=== PATIENT | male | born 1960 ===

== ENCOUNTER 2018-09-07 08:44 | Day surgery (SDC) | payer BC ==
[2018-09-07] MEDS ORDERED: Lactated Ringer's 500 ML IV SCH (12:45)
[2018-09-07] MEDS ORDERED: Propofol 10 mg/ml Inj (20 ML) ONE (12:49)
[2018-09-07] MEDS ORDERED: Lactated Ringer's 500 ML IV ONE (12:50)
[2018-09-07 14:16] VITALS: O2SAT 99
[2018-09-07 14:29] VITALS: BP 129/77; PULSE 72; RESP 21; TEMP 97.7
== END 2018-09-07 14:29 | disposition home or self-care (01) ==
LOC: C.ENDO 08:44
PROVIDERS: ATTEND Internal Medicine Gastroenterology
DX: Z12.11 Encounter for screening for malignant neoplasm of colon (principal); D12.0 Benign neoplasm of cecum; D12.7 Benign neoplasm of rectosigmoid junction; D12.3 Benign neoplasm of transverse colon; K64.8 Other hemorrhoids
CPT/HCPCS: 45380; 45385; 88305; J2704; J7120

== ENCOUNTER 2018-09-28 11:36 | Outpatient (CLI) | payer BC | END 2018-09-28 11:37 | disposition home or self-care (01) | LOC: C.PAT 11:36 | DX: K63.5 Polyp of colon (principal) ==

== ENCOUNTER 2018-10-03 09:21 | Outpatient (CLI) | payer BC | END 2018-10-03 09:22 | disposition home or self-care (01) | LOC: C.PAT 09:21 | DX: Z01.818 Encounter for other preprocedural examination (principal) ==

== ENCOUNTER 2018-10-05 07:06 | Inpatient (IN) | payer BC ==
[2018-10-03 09:33] VITALS: BMI 23.3
[2018-10-05] MEDS ORDERED: Lidocaine/Epinephrine 1% 1:100000 10 ML IJ ONE (07:59)
[2018-10-05] MEDS ORDERED: Bupivacaine 0.25% 20 ML INJ IJ ONE (07:59)
[2018-10-05] MEDS ORDERED: metroNIDAZOLE IV 500 mg/100 ml 500 MG/100 ML BAG ONE (08:00)
[2018-10-05] MEDS ORDERED: ceFAZolin 1 gm in NS 1 GM/100 ML BAG IVPB ONE ×2 (08:00→09:27)
[2018-10-05] MEDS ORDERED: Bupivacaine HCl 0.5% PF (10 ml) Inj ONE (08:32)
[2018-10-05] MEDS ORDERED: Propofol 10 mg/ml Inj (20 ML) ONE (08:38)
[2018-10-05] MEDS ORDERED: Midazolam 2 MG/2 ML VIAL ONE (08:38)
[2018-10-05] MEDS ORDERED: Rocuronium 10 mg/ml (5 ml) ONE (08:41)
[2018-10-05] MEDS ORDERED: Phenylephrine 10 mg/ml Inj ONE (08:41)
[2018-10-05] MEDS ORDERED: Bupivacaine Liposomal Inj 20 ml INFIL ONE (12:11)
[2018-10-05] MEDS ORDERED: BUPIVACAINE 0.125%/0.9% NACL 600 ML IJ ONE (12:13)
[2018-10-05] MEDS ORDERED: Sodium Chloride 0.9% 20 ML IV ONE (12:24)
--- NOTE | 2018-10-05 12:55 | PCM.SURG1 ---
Surgeon's Initial Post Op Note - Surgeon's Notes Surgeon: Dr. Ronquillo Bottom Buffer: Perlita Salguero Type of Anesthesia: General Endo, Local Anesthesia Administered By: Behzad Moss Pre-Operative Diagnosis: Colon Mass Operative Findings: see operative report Post-Operative Diagnosis: same Operation Performed: Robot-assisted Right Hemicolectomy, partial omentectomy, short segment small bowel resection with anastamosis, placement of On-Q catheters Specimen/Specimens Removed: Right Colon, Partial omentum Estimated Blood Loss: EBL {In ML}: 50 Blood Products Given: N/A Drains Used: No Drains Post-Op Condition: Good Date of Surgery/Procedure: 10/05/18 Time of Surgery/Procedure: 12:57
[2018-10-05] MEDS: HYDROmorphone 0.5 mg/0.5 ml ISec IVP PRN ×2 (13:42→14:15)
[2018-10-05] MEDS: Piperacill/Tazo 3.375gm in Dex 3.375 GM/50 ML BAG IVPB SCH ×2 (14:22→21:00)
[2018-10-05] MEDS ORDERED: Lactated Ringer's 1,000 ML IV SCH (15:45)
[2018-10-05] MEDS ORDERED: Lactated Ringer's 1,000 ML IV ONE (16:00)
[2018-10-06] MEDS: Piperacill/Tazo 3.375gm in Dex 3.375 GM/50 ML BAG IVPB SCH ×3 (01:20→13:35)
--- NOTE | 2018-10-06 02:28 | OP ---
PROCEDURE DATE: 10/05/2018 PREOPERATIVE DIAGNOSIS: Large cecal polyp. POSTOPERATIVE DIAGNOSIS: Large cecal polyp. PROCEDURE PERFORMED: 1. Robotic right hemicolectomy. 2. Robotic partial omentectomy. 3. Laparoscopic bilateral on On-Q pain catheter pump placement. SURGEON: Angel Ronquillo MD [employer] ATTENDANT: ANTON Adamson ANESTHESIA: General endotracheal tube anesthesia. ESTIMATED BLOOD LOSS: Around 50 mL. DRAINS: None. PATHOLOGY: The terminal ileum, cecum, ascending colon and part of the hepatic flexure was sent for the pathology. There was also small segment of the small bowel that was firmly adhesed to the pelvis was also resected and it was sent off the table for the pathology, and part of the omentum was sent for the pathology. COMPLICATIONS: None. INTRAOPERATIVE FINDINGS: The patient had a large cecal polyp with tattoo and the small bowel was firmly adhesed to the pelvis and to mobilize the small bowel to the colon, the part of the small bowel was resected in addition to the primary resection. DESCRIPTION OF PROCEDURE: On intraoperative steps, this is a 58-year-old male, who was diagnosed with a large cecal polyp and the patient was consented for the robotic right hemicolectomy, brought to the OR, placed supine on the operating table. After induction of anesthesia, the abdomen was fashioned using the Visiport technique. Peritoneal cavity was entered and pneumo was created. Another 3 mm port was placed in the right upper quadrant, right lower quadrant as well as the midline and the robot was brought in. Camera arm as well as arm one and arm two was docked and the cecal tattoo was identified. The patient had extensive omental attachment to the colon. So, the first lysis of adhesion was done and the colon was mobilized and the terminal ileum was resected and then the mesocolon of the cecum, ascending colon and hepatic flexure was also resected and the transverse colon was resected at the hepatic flexure junction. Now, the small bowel was firmly adhesed to the pelvis and the mesentery was very difficult to mobilize and the part of the small bowel was resected in order for small bowel to reach the transverse colon. After that, the procedure was converted to laparoscopic and a small incision was made. The specimen was taken out and it was sent off the table for the pathology. During the initial mobilization of the omentum, the part of the omentum was resected and it was sent off the table for the pathology. Now, the [id number] anastomosis of the ileum to the proximal transverse colon was done and the intraoperative Firefly was used before and after the anastomosis. There was a good blood supply, anastomosis was not in tension and there was patent anastomosis. After that, the pneumo was deflated and now all 12-mm port site were closed in two layers, fascia with 0 Vicryl, skin with 4-0 Monocryl and the midline fascia of the specimen removal site was also closed with #1 loop PDS as well as 0 Prolene interrupted suture, and subcu skin with a 4-0 Monocryl. The patient tolerated procedure well. Count of instrument and gauze was correct. There was no apparent complication. Before closing the wound, bilateral On-Q pain catheter pump was placed and it was injected with Marcaine, and the patient was sent to the postanesthesia care unit in stable condition. Angel Ronquillo MD DIANNA
[2018-10-06 07:58] LABS: BASO % 0.2 % (0.0-2.0); EOS % 0.1 % (0.0-4.0); LYMPH # 2.1 K/uL (1.0-4.3); LYMPH % 24.4 % (20.0-40.0); MEAN CELL VOLUME 96.2 fL (80.0-94.0); MEAN CORPUSCULAR HEMOGLOBIN 32.8 pg (27.0-31.0); MEAN CORPUSCULAR HGB CONC 34.1 g/dL (33.0-37.0); MEAN PLATELET VOLUME 7.6 fL (7.2-11.7); MONO % 11.2 % (0.0-10.0); NEUT # 5.5 K/uL (1.8-7.0); NEUT % 64.1 % (50.0-75.0); RBC 3.4 Mil/uL (4.40-5.90); RED CELL DISTRIBUTION WIDTH 12.3 % (11.5-14.5)
[2018-10-06 08:00] LABS: HEMOGLOBIN 11.2 g/dL (12.0-18.0); WHITE BLOOD COUNT 8.5 K/uL (4.8-10.8)
[2018-10-06 08:17] LABS: BLOOD UREA NITROGEN 9 mg/dL (9-20); CALCIUM 8.8 mg/dl (8.6-10.4); GFR NON-AFRICAN AMERICAN > 60
[2018-10-06] MEDS ORDERED: Enoxaparin 40 mg Syringe SC SCH (10:00)
[2018-10-06] MEDS ORDERED: Potassium Chloride 20 mEq ER Tab PO SCH (10:00)
--- NOTE | 2018-10-06 12:51 | CP.PCM.PN ---
<Eliana Garcia - Last Filed: 10/06/18 12:48> Subjective - Date & Time of Evaluation Date of Evaluation: 10/06/18 Time of Evaluation: 06:30 - Subjective Subjective: Surgery: Dr. Ronquillo Pt seen and examined. No acute overnight events. Pt states he feels well this morning and pain is well controlled. Pt admits to tolerating liquids and denies nausea/vomiting. Admits to flatus but denies BM. Denies fevers/chills. Objective - Vital Signs/Intake and Output Vital Signs (last 24 hours): Temp Pulse Resp BP Pulse Ox 98.6 F 86 20 135/84 95 10/06/18 08:46 10/06/18 08:46 10/06/18 08:46 10/06/18 08:46 10/06/18 08:46 Intake and Output: 10/06/18 10/06/18 06:59 18:59 Intake Total 1920 Output Total 1050 Balance 870 - Medications Medications: Current Medications Enoxaparin Sodium (Lovenox) 40 mg SC DAILY [facility] Last Admin: 10/06/18 09:03 Dose: Not Given Hydrochlorothiazide (Microzide) 12.5 mg PO DAILY [facility] Last Admin: 10/06/18 09:03 Dose: 12.5 mg BUPIVACAINE 0.125%/0.9% NACL (Bupivacaine-Ns 0.125% On-Q Sales Planning Analyst) 600 mls @ 4 mls/hr IJ ONCE ONE Stop: 10/11/18 18:12 Last Admin: 10/05/18 13:45 Dose: 0 mls Piperacillin Sod/Tazobactam Sod (Zosyn 3.375 Gm Iv Premix) 3.375 gm in 50 mls @ 100 mls/hr IVPB Q6H [facility]; Protocol Last Admin: 10/06/18 08:58 Dose: 100 mls/hr Ketorolac Tromethamine (Toradol) 30 mg IV Q6 PRN PRN Reason: Pain, moderate (4-7) Last Admin: 10/06/18 09:04 Dose: 30 mg Lisinopril (Zestril) 10 mg PO DAILY [facility] Last Admin: 10/06/18 09:03 Dose: 10 mg Ondansetron HCl (Zofran Inj) 4 mg IVP Q6 PRN PRN Reason: Nausea/Vomiting Oxycodone/Acetaminophen (Percocet 5/325 Mg Tab) 1 tab PO Q4H PRN PRN Reason: Pain, moderate (4-7) Stop: 10/09/18 08:31 Potassium Chloride (K-Dur 20 Meq Er Tab) 20 meq PO DAILY [facility] Last Admin: 10/06/18 09:40 Dose: 20 meq Rosuvastatin Calcium (Crestor) 20 mg PO HS [facility] - Labs Labs: 10/06/18 07:48 10/06/18 07:48 - Constitutional Appears: Well, No Acute Distress - Head Exam Head Exam: ATRAUMATIC, NORMOCEPHALIC - Eye Exam Eye Exam: Normal appearance - ENT Exam ENT Exam: Mucous Membranes Moist - Respiratory Exam Respiratory Exam: NORMAL BREATHING PATTERN - Cardiovascular Exam Cardiovascular Exam: RRR - GI/Abdominal Exam GI & Abdominal Exam: Soft, Tenderness (around incision sites; dressing C/D/I ). absent: Distended - Neurological Exam Neurological Exam: Alert, Awake, Oriented x3 - Skin Skin Exam: Dry, Warm Assessment and Plan - Assessment and Plan (Free Text) Assessment: 58M s/p robotic assisted R hemicolectomy and segmental bowel resection; POD#1 Plan: - DC hilario - advance to soft diet - encourage ambulation with PT - encourage incentive spirometer - d/w Dr. Shima Garcia <Angel Ronquillo - Last Filed: 10/07/18 20:53> Objective - Vital Signs/Intake and Output Vital Signs (last 24 hours): Temp Pulse Resp BP Pulse Ox 98.6 F 86 20 132/88 96 10/07/18 08:10 10/07/18 08:10 10/07/18 08:10 10/07/18 08:10 10/07/18 08:10 Intake and Output: 10/07/18 10/08/18 18:59 06:59 Intake Total 400 Balance 400 - Medications Medications: Current Medications Docusate Sodium (Colace) 100 mg PO DAILY [facility] Last Admin: 10/07/18 11:03 Dose: 100 mg Hydrochlorothiazide (Microzide) 12.5 mg PO DAILY [facility] Last Admin: 10/07/18 11:03 Dose: 12.5 mg BUPIVACAINE 0.125%/0.9% NACL (Bupivacaine-Ns 0.125% On-Q Sales Planning Analyst) 600 mls @ 4 mls/hr IJ ONCE ONE Stop: 10/11/18 18:12 Last Admin: 10/05/18 13:45 Dose: 0 mls Lisinopril (Zestril) 10 mg PO DAILY [facility] Last Admin: 10/07/18 11:03 Dose: 10 mg Ondansetron HCl (Zofran Inj) 4 mg IVP Q6 PRN PRN Reason: Nausea/Vomiting Last Admin: 10/07/18 14:51 Dose: 4 mg Oxycodone/Acetaminophen (Percocet 5/325 Mg Tab) 1 tab PO Q4H PRN PRN Reason: Pain, moderate (4-7) Stop: 10/09/18 08:31 Last Admin: 10/07/18 13:57 Dose: 1 tab Rosuvastatin Calcium (Crestor) 20 mg PO HS [facility] Last Admin: 10/06/18 21:40 Dose: 20 mg - Labs Labs: 10/07/18 07:01 10/07/18 07:01 Attending/Attestation - Attestation I have personally seen and examined this patient.: Yes I have fully participated in the care of the patient.: Yes I have reviewed all pertinent clinical information, including history, physical exam and plan: Yes Notes (Text): Pt was seen and examined at bedside Agree with above note and assessment Pt is s/p Robotic Right Hemicolectomy Passing Gas and BM liquid diet DVT prophylaxis Plan d.w pt in detail Risk and benefit explained in detail.
[2018-10-06] MEDS: Oxycodone/Acetaminophen 5/325 mg Tab PO PRN (21:40)
[2018-10-07 07:25] LABS: BASO % 0.3 % (0.0-2.0); EOS % 0.1 % (0.0-4.0); LYMPH # 1.9 K/uL (1.0-4.3); LYMPH % 20.2 % (20.0-40.0); MEAN CELL VOLUME 95.9 fL (80.0-94.0); MEAN CORPUSCULAR HEMOGLOBIN 32.9 pg (27.0-31.0); MEAN CORPUSCULAR HGB CONC 34.3 g/dL (33.0-37.0); MEAN PLATELET VOLUME 7.5 fL (7.2-11.7); MONO # 0.8 K/uL (0.0-0.8); MONO % 8.3 % (0.0-10.0); NEUT # 6.6 K/uL (1.8-7.0); NEUT % 71.1 % (50.0-75.0); RBC 3.35 Mil/uL (4.40-5.90); RED CELL DISTRIBUTION WIDTH 12.5 % (11.5-14.5); WHITE BLOOD COUNT 9.3 K/uL (4.8-10.8)
[2018-10-07 07:35] LABS: BLOOD UREA NITROGEN 10 mg/dL (9-20); CALCIUM 9.2 mg/dl (8.6-10.4); GFR NON-AFRICAN AMERICAN > 60
--- NOTE | 2018-10-07 07:55 | CP.PCM.PN ---
<ТатьянаAaron alaniz - Last Filed: 10/07/18 07:52> Subjective - Date & Time of Evaluation Date of Evaluation: 10/07/18 Time of Evaluation: 06:40 - Subjective Subjective: Surgery Progress note. Dr. Ronquillo Pt seen and examined at bedside. No acute events overnight. No N/V/D. No F/C. No CP/SOB. Does report BMs and flatus. IS 1500. Still reports pain and is apprehensive to go home today due to pain and requesting to stay another day in the hospital. Objective - Vital Signs/Intake and Output Vital Signs (last 24 hours): Temp Pulse Resp BP Pulse Ox 98.1 F 77 20 127/81 99 10/07/18 04:30 10/07/18 04:30 10/07/18 04:30 10/07/18 04:30 10/06/18 23:55 - Medications Medications: Current Medications Docusate Sodium (Colace) 100 mg PO DAILY [facility] Last Admin: 10/06/18 13:31 Dose: 100 mg Hydrochlorothiazide (Microzide) 12.5 mg PO DAILY [facility] Last Admin: 10/06/18 09:03 Dose: 12.5 mg BUPIVACAINE 0.125%/0.9% NACL (Bupivacaine-Ns 0.125% On-Q Hr Clerk) 600 mls @ 4 mls/hr IJ ONCE ONE Stop: 10/11/18 18:12 Last Admin: 10/05/18 13:45 Dose: 0 mls Ketorolac Tromethamine (Toradol) 30 mg IV Q6 PRN PRN Reason: Pain, moderate (4-7) Last Admin: 10/07/18 00:49 Dose: 30 mg Lisinopril (Zestril) 10 mg PO DAILY [facility] Last Admin: 10/06/18 09:03 Dose: 10 mg Ondansetron HCl (Zofran Inj) 4 mg IVP Q6 PRN PRN Reason: Nausea/Vomiting Oxycodone/Acetaminophen (Percocet 5/325 Mg Tab) 1 tab PO Q4H PRN PRN Reason: Pain, moderate (4-7) Stop: 10/09/18 08:31 Last Admin: 10/06/18 21:40 Dose: 1 tab Rosuvastatin Calcium (Crestor) 20 mg PO [facility] Last Admin: 10/06/18 21:40 Dose: 20 mg - Labs Labs: 10/07/18 07:01 10/07/18 07:01 - Constitutional Appears: Non-toxic, No Acute Distress - Head Exam Head Exam: ATRAUMATIC, NORMAL INSPECTION, NORMOCEPHALIC - Eye Exam Eye Exam: EOMI, Normal appearance. absent: Scleral icterus - ENT Exam ENT Exam: Mucous Membranes Moist - Respiratory Exam Respiratory Exam: NORMAL BREATHING PATTERN. absent: Accessory Muscle Use, Respiratory Distress - Cardiovascular Exam Cardiovascular Exam: absent: JVD - GI/Abdominal Exam GI & Abdominal Exam: Soft. absent: Distended, Guarding, Rigid, Rebound Additional comments: Mild keegan-incisional tenderness. Dressing clean, dry and intact. - Neurological Exam Neurological Exam: Alert, Awake, Oriented x3 - Psychiatric Exam Psychiatric exam: Normal Affect, Normal Mood - Skin Skin Exam: Dry, Intact, Normal Color, Warm Assessment and Plan - Assessment and Plan (Free Text) Assessment: 58yo M s/p Robot-assisted Right Hemicolectomy, SB segment resection. POD 2 Plan: - Encourage OOBTC and IS use - PT eval and treat - Pain management - Continue diet - Resume home meds Further recs as per Dr. Shima Vaz PGY2 surgery <Angel Ronquillo - Last Filed: 10/07/18 20:54> Objective - Vital Signs/Intake and Output Vital Signs (last 24 hours): Temp Pulse Resp BP Pulse Ox 98.6 F 86 20 132/88 96 10/07/18 08:10 10/07/18 08:10 10/07/18 08:10 10/07/18 08:10 10/07/18 08:10 Intake and Output: 10/07/18 10/08/18 18:59 06:59 Intake Total 400 Balance 400 - Medications Medications: Current Medications Docusate Sodium (Colace) 100 mg PO DAILY [facility] Last Admin: 10/07/18 11:03 Dose: 100 mg Hydrochlorothiazide (Microzide) 12.5 mg PO DAILY [facility] Last Admin: 10/07/18 11:03 Dose: 12.5 mg BUPIVACAINE 0.125%/0.9% NACL (Bupivacaine-Ns 0.125% On-Q Hr Clerk) 600 mls @ 4 mls/hr IJ ONCE ONE Stop: 10/11/18 18:12 Last Admin: 10/05/18 13:45 Dose: 0 mls Lisinopril (Zestril) 10 mg PO DAILY [facility] Last Admin: 10/07/18 11:03 Dose: 10 mg Ondansetron HCl (Zofran Inj) 4 mg IVP Q6 PRN PRN Reason: Nausea/Vomiting Last Admin: 10/07/18 14:51 Dose: 4 mg Oxycodone/Acetaminophen (Percocet 5/325 Mg Tab) 1 tab PO Q4H PRN PRN Reason: Pain, moderate (4-7) Stop: 10/09/18 08:31 Last Admin: 10/07/18 13:57 Dose: 1 tab Rosuvastatin Calcium (Crestor) 20 mg PO HS [facility] Last Admin: 10/06/18 21:40 Dose: 20 mg - Labs Labs: 10/07/18 07:01 10/07/18 07:01 Attending/Attestation - Attestation I have personally seen and examined this patient.: Yes I have fully participated in the care of the patient.: Yes I have reviewed all pertinent clinical information, including history, physical exam and plan: Yes Notes (Text): Pt was seen and examined at bedside Agree with above note and assessment Pt vomited once today Abdomen mild distended C.w clears CBC, BMP in am OOB to walk Plan d.w pt in detail Risk and benefit explained in detail.
[2018-10-07] MEDS: Oxycodone/Acetaminophen 5/325 mg Tab PO PRN ×3 (08:13→22:18)
[2018-10-08] MEDS: Oxycodone/Acetaminophen 5/325 mg Tab PO PRN ×2 (09:24→22:06)
--- NOTE | 2018-10-08 09:33 | CP.PCM.PN ---
<Milad Salcedo - Last Filed: 10/08/18 09:27> Subjective - Date & Time of Evaluation Date of Evaluation: 10/08/18 Time of Evaluation: 07:00 - Subjective Subjective: General Surgery Pt Seen and examined. Had an episode of emesis in the evening of dark liquids. Still with BMs, less dark blood now. Pain controlled with meds. Ambulating and using IS. Objective - Vital Signs/Intake and Output Vital Signs (last 24 hours): Temp Pulse Resp BP Pulse Ox 98.1 F 80 20 143/91 H 98 10/08/18 07:25 10/08/18 07:25 10/08/18 07:25 10/08/18 07:25 10/08/18 07:25 - Medications Medications: Current Medications Docusate Sodium (Colace) 100 mg PO DAILY [facility] Last Admin: 10/08/18 09:24 Dose: 100 mg Hydrochlorothiazide (Microzide) 12.5 mg PO DAILY [facility] Last Admin: 10/08/18 09:24 Dose: 12.5 mg BUPIVACAINE 0.125%/0.9% NACL (Bupivacaine-Ns 0.125% On-Q Post Anesthesia Room Nurse) 600 mls @ 4 mls/hr IJ ONCE ONE Stop: 10/11/18 18:12 Last Admin: 10/05/18 13:45 Dose: 0 mls Lisinopril (Zestril) 10 mg PO DAILY [facility] Last Admin: 10/08/18 09:24 Dose: 10 mg Ondansetron HCl (Zofran Inj) 4 mg IVP Q6 PRN PRN Reason: Nausea/Vomiting Last Admin: 10/07/18 22:18 Dose: 4 mg Oxycodone/Acetaminophen (Percocet 5/325 Mg Tab) 1 tab PO Q4H PRN PRN Reason: Pain, moderate (4-7) Stop: 10/09/18 08:31 Last Admin: 10/08/18 09:24 Dose: 1 tab Rosuvastatin Calcium (Crestor) 20 mg PO HS [facility] Last Admin: 10/07/18 22:19 Dose: 20 mg - Labs Labs: 10/07/18 07:01 10/07/18 07:01 - Constitutional Appears: Non-toxic, No Acute Distress - Head Exam Head Exam: ATRAUMATIC, NORMOCEPHALIC - Eye Exam Eye Exam: EOMI. absent: Scleral icterus - Respiratory Exam Respiratory Exam: NORMAL BREATHING PATTERN. absent: Respiratory Distress - GI/Abdominal Exam GI & Abdominal Exam: Distended (mild), Soft, Tenderness (at incision sites). absent: Firm, Guarding, Rigid, Rebound Additional comments: dressings C/D/i - Neurological Exam Neurological Exam: Alert, Awake, Oriented x3 - Skin Skin Exam: Dry, Warm Assessment and Plan - Assessment and Plan (Free Text) Assessment: 58yo M s/p Robot-assisted Right Hemicolectomy, SB segment resection. POD 3 Plan: - Abd XR - Encourage OOBTC and IS use - Pain management - Continue CLD D/W Dr. Shima Salcedo PGY4 <Angel Ronquillo - Last Filed: 10/11/18 16:28> Objective - Vital Signs/Intake and Output Vital Signs (last 24 hours): Temp Pulse Resp BP Pulse Ox 98.3 F 90 20 127/79 99 10/11/18 07:30 10/11/18 07:30 10/11/18 07:30 10/11/18 07:30 10/11/18 07:30 - Labs Labs: 10/10/18 07:17 10/10/18 07:17 Attending/Attestation - Attestation I have fully participated in the care of the patient.: Yes I have reviewed all pertinent clinical information, including history, physical exam and plan: Yes Notes (Text): Pt is improving clinically Advance diet to full DC plan Plan d.w pt in detail.
--- NOTE | 2018-10-08 16:23 | RAD ---
Date of service: 10/08/2018 HISTORY: Ileus evaluation. Right hemicolectomy COMPARISON: The FINDINGS: BOWEL: Small amount of free air present in this patient with recent right hemicolectomy. There appears to be generalized ileus with loops of distended air-filled small bowel. Air is also present within the colon. BONES: Normal. OTHER FINDINGS: None. IMPRESSION: Postoperative changes of right hemicolectomy with small amount of residual free air. Generalized ileus.
--- NOTE | 2018-10-09 09:13 | CP.PCM.PN ---
<Aaron Vaz - Last Filed: 10/09/18 12:19> Subjective - Date & Time of Evaluation Date of Evaluation: 10/09/18 Time of Evaluation: 07:20 - Subjective Subjective: Surgery Progress note. Dr. Ronquillo Pt seen and examined at bedside. No acute events overnight. Reports hiccups. Pain moderately controlled. No N/V/D. Having BMs and passing flatus. Ambulating about the hospital bourgeois. No other complaints reported. Objective - Vital Signs/Intake and Output Vital Signs (last 24 hours): Temp Pulse Resp BP Pulse Ox 98.1 F 87 20 127/84 97 10/09/18 07:30 10/09/18 07:30 10/09/18 07:30 10/09/18 07:30 10/09/18 07:30 - Medications Medications: Current Medications Docusate Sodium (Colace) 100 mg PO DAILY [facility] Last Admin: 10/08/18 09:24 Dose: 100 mg Hydrochlorothiazide (Microzide) 12.5 mg PO DAILY [facility] Last Admin: 10/08/18 09:24 Dose: 12.5 mg BUPIVACAINE 0.125%/0.9% NACL (Bupivacaine-Ns 0.125% On-Q Therapist Rrt) 600 mls @ 4 mls/hr IJ ONCE ONE Stop: 10/11/18 18:12 Last Admin: 10/05/18 13:45 Dose: 0 mls Lisinopril (Zestril) 10 mg PO DAILY [facility] Last Admin: 10/08/18 09:24 Dose: 10 mg Ondansetron HCl (Zofran Inj) 4 mg IVP Q6 PRN PRN Reason: Nausea/Vomiting Last Admin: 10/07/18 22:18 Dose: 4 mg Rosuvastatin Calcium (Crestor) 20 mg PO HS [facility] Last Admin: 10/08/18 22:06 Dose: 20 mg - Labs Labs: 10/07/18 07:01 10/07/18 07:01 - Constitutional Appears: Well, Non-toxic, No Acute Distress - Head Exam Head Exam: ATRAUMATIC, NORMAL INSPECTION, NORMOCEPHALIC - Eye Exam Eye Exam: EOMI, Normal appearance. absent: Scleral icterus - ENT Exam ENT Exam: Mucous Membranes Moist - Respiratory Exam Respiratory Exam: NORMAL BREATHING PATTERN. absent: Accessory Muscle Use, Respiratory Distress - Cardiovascular Exam Cardiovascular Exam: RRR. absent: JVD - GI/Abdominal Exam GI & Abdominal Exam: Soft. absent: Distended, Firm, Guarding, Rigid, Rebound Additional comments: Dressing clean, dry and intact Mild keegan-incisional tenderness upon palpation noted - Extremities Exam Extremities Exam: Normal Inspection. absent: Calf Tenderness - Neurological Exam Neurological Exam: Alert, Awake, Oriented x3 - Psychiatric Exam Psychiatric exam: Normal Affect, Normal Mood - Skin Skin Exam: Dry, Intact, Normal Color, Warm Assessment and Plan - Assessment and Plan (Free Text) Assessment: 58yo M s/p Robotic R hemicolectomy and SB segmental resection. POD4 Plan: - Continue FLD - Encourage OOBTC, IS use - Encourage Ambulation - Pain management Further recs as per Dr. Shima Vaz PGY2 surgery <Angel Ronquillo - Last Filed: 10/11/18 16:29> Objective - Vital Signs/Intake and Output Vital Signs (last 24 hours): Temp Pulse Resp BP Pulse Ox 98.3 F 90 20 127/79 99 10/11/18 07:30 10/11/18 07:30 10/11/18 07:30 10/11/18 07:30 10/11/18 07:30 - Labs Labs: 10/10/18 07:17 10/10/18 07:17 Attending/Attestation - Attestation I have fully participated in the care of the patient.: Yes I have reviewed all pertinent clinical information, including history, physical exam and plan: Yes Notes (Text): Pt is improving clinically Advance diet to fulls C.w current mx Plan d.w pt in detail.
[2018-10-09] MEDS: Oxycodone/Acetaminophen 5/325 mg Tab PO PRN ×2 (16:51→23:01)
[2018-10-10 02:23] VITALS: RESP 20
--- NOTE | 2018-10-10 07:22 | CP.PCM.PN ---
<Milad Salcedo - Last Filed: 10/10/18 07:19> Subjective - Date & Time of Evaluation Date of Evaluation: 10/10/18 Time of Evaluation: 06:20 - Subjective Subjective: General Surgery Pt seen and examined. No issues overnight. Tolerated diet. No emesis. Ambulating and using IS. +BMs. Still with some pain but overall improved. Objective - Vital Signs/Intake and Output Vital Signs (last 24 hours): Temp Pulse Resp BP Pulse Ox 98.9 F 91 H 20 114/76 98 10/09/18 23:45 10/09/18 23:45 10/09/18 23:45 10/09/18 23:45 10/09/18 23:45 - Medications Medications: Current Medications Docusate Sodium (Colace) 100 mg PO DAILY [facility] Last Admin: 10/09/18 09:40 Dose: 100 mg Hydrochlorothiazide (Microzide) 12.5 mg PO DAILY [facility] Last Admin: 10/09/18 09:40 Dose: 12.5 mg BUPIVACAINE 0.125%/0.9% NACL (Bupivacaine-Ns 0.125% On-Q Edge Baster) 600 mls @ 4 mls/hr IJ ONCE ONE Stop: 10/11/18 18:12 Last Admin: 10/05/18 13:45 Dose: 0 mls Lisinopril (Zestril) 10 mg PO DAILY [facility] Last Admin: 10/09/18 09:40 Dose: 10 mg Ondansetron HCl (Zofran Inj) 4 mg IVP Q6 PRN PRN Reason: Nausea/Vomiting Last Admin: 10/07/18 22:18 Dose: 4 mg Oxycodone/Acetaminophen (Percocet 5/325 Mg Tab) 1 tab PO Q6H PRN PRN Reason: Pain, moderate (4-7) Stop: 10/12/18 16:04 Last Admin: 10/09/18 23:01 Dose: 1 tab Rosuvastatin Calcium (Crestor) 20 mg PO HS [facility] Last Admin: 10/09/18 22:25 Dose: 20 mg - Labs Labs: 10/07/18 07:01 10/07/18 07:01 - Constitutional Appears: Non-toxic, No Acute Distress - Head Exam Head Exam: ATRAUMATIC, NORMOCEPHALIC - Eye Exam Eye Exam: EOMI. absent: Scleral icterus - Respiratory Exam Respiratory Exam: NORMAL BREATHING PATTERN. absent: Respiratory Distress - GI/Abdominal Exam GI & Abdominal Exam: Soft, Tenderness (mild at incision sites). absent: Distended, Firm, Guarding, Rigid, Rebound Additional comments: dressings c/d/i - Extremities Exam Extremities Exam: Normal Capillary Refill. absent: Calf Tenderness, Pedal Edema - Neurological Exam Neurological Exam: Alert, Awake, Oriented x3 - Skin Skin Exam: Dry, Warm Assessment and Plan - Assessment and Plan (Free Text) Assessment: 58yo M s/p Robotic R hemicolectomy and SB segmental resection. POD#5 Plan: - Continue FLD - Encouraged IS use - Encouraged Ambulation - Pain management - DC planning Will D/W Dr. Shima Salcedo PGY4 <Angel Ronquillo - Last Filed: 10/11/18 16:30> Objective - Vital Signs/Intake and Output Vital Signs (last 24 hours): Temp Pulse Resp BP Pulse Ox 98.3 F 90 20 127/79 99 10/11/18 07:30 10/11/18 07:30 10/11/18 07:30 10/11/18 07:30 10/11/18 07:30 - Labs Labs: 10/10/18 07:17 10/10/18 07:17 Attending/Attestation - Attestation I have personally seen and examined this patient.: Yes I have fully participated in the care of the patient.: Yes I have reviewed all pertinent clinical information, including history, physical exam and plan: Yes Notes (Text): Pt was seen and examined at bedside Agree with above note and assessment Pt is improved clinically Advance diet as tolerated Can be DC home tomorrow Plan d.w pt in detail. Risk and benefit explained in detail.
[2018-10-10 07:47] LABS: BASO % 0.3 % (0.0-2.0); EOS % 0.3 % (0.0-4.0); HEMOGLOBIN 11.4 g/dL (12.0-18.0); LYMPH # 1.4 K/uL (1.0-4.3); LYMPH % 13.8 % (20.0-40.0); MEAN CELL VOLUME 94.2 fL (80.0-94.0); MEAN CORPUSCULAR HEMOGLOBIN 32.9 pg (27.0-31.0); MEAN CORPUSCULAR HGB CONC 34.9 g/dL (33.0-37.0); MEAN PLATELET VOLUME 7.8 fL (7.2-11.7); MONO # 1.1 K/uL (0.0-0.8); NEUT # 7.5 K/uL (1.8-7.0); NEUT % 74.6 % (50.0-75.0); RBC 3.46 Mil/uL (4.40-5.90); RED CELL DISTRIBUTION WIDTH 12.1 % (11.5-14.5)
[2018-10-10 07:48] LABS: BLOOD UREA NITROGEN 19 mg/dL (9-20); CALCIUM 9.3 mg/dl (8.6-10.4); GFR NON-AFRICAN AMERICAN > 60
[2018-10-11 02:17] VITALS: O2SAT 99
[2018-10-11 07:50] VITALS: BP 127/79; PULSE 90; TEMP 98.3
--- NOTE | 2018-10-11 09:16 | CP.PCM.DIS ---
Provider - Provider Date of Admission: 10/05/18 12:46 Attending physician: Angel Ronquillo MD Time Spent in preparation of Discharge (in minutes): 30 Diagnosis - Discharge Diagnosis (1) Colonic mass Status: Resolved Priority: High Hospital Course - Lab Results Lab Results: Most Recent Lab Values WBC 10.0 K/uL (4.8-10.8) 10/10/18 07:17 RBC 3.46 Mil/uL (4.40-5.90) L 10/10/18 07:17 Hgb 11.4 g/dL (12.0-18.0) L 10/10/18 07:17 Hct 32.6 % (35.0-51.0) L 10/10/18 07:17 MCV 94.2 fL (80.0-94.0) H 10/10/18 07:17 MCH 32.9 pg (27.0-31.0) H 10/10/18 07:17 MCHC 34.9 g/dL (33.0-37.0) 10/10/18 07:17 RDW 12.1 % (11.5-14.5) 10/10/18 07:17 Plt Count 349 K/uL (130-400) D 10/10/18 07:17 MPV 7.8 fL (7.2-11.7) 10/10/18 07:17 Neut % (Auto) 74.6 % (50.0-75.0) 10/10/18 07:17 Lymph % (Auto) 13.8 % (20.0-40.0) L 10/10/18 07:17 [place] % (Auto) 11.0 % (0.0-10.0) H 10/10/18 07:17 Eos % (Auto) 0.3 % (0.0-4.0) 10/10/18 07:17 Baso % (Auto) 0.3 % (0.0-2.0) 10/10/18 07:17 Neut # (Auto) 7.5 K/uL (1.8-7.0) H 10/10/18 07:17 Lymph # (Auto) 1.4 K/uL (1.0-4.3) 10/10/18 07:17 [place] # (Auto) 1.1 K/uL (0.0-0.8) H 10/10/18 07:17 Eos # (Auto) 0.0 K/uL (0.0-0.7) 10/10/18 07:17 Baso # (Auto) 0.0 K/uL (0.0-0.2) 10/10/18 07:17 Sodium 134 mmol/L (132-148) 10/10/18 07:17 Potassium 3.8 mmol/L (3.6-5.2) 10/10/18 07:17 Chloride 93 mmol/L (98-107) L 10/10/18 07:17 Carbon Dioxide 32 mmol/L (22-30) H 10/10/18 07:17 Anion Gap 13 (10-20) 10/10/18 07:17 BUN 19 mg/dL (9-20) 10/10/18 07:17 Creatinine 0.8 mg/dL (0.8-1.5) 10/10/18 07:17 Est GFR ( Amer) > 60 10/10/18 07:17 Est GFR (Non-Af Amer) > 60 10/10/18 07:17 Random Glucose 110 mg/dL (75-110) 10/10/18 07:17 Calcium 9.3 mg/dl (8.6-10.4) 10/10/18 07:17 Blood Type O POSITIVE 10/05/18 07:58 Antibody Screen Positive 10/05/18 07:58 Antibody Identification Cancelled 10/05/18 07:58 - Hospital Course Hospital Course: 58M presented to Same day surgery for removal of his R colon mass. Pt did well after surgery but was kept in house for pain control and diet intolerance until he was able to be DC'ed on POD #6. Discharge Exam - Head Exam Head Exam: ATRAUMATIC, NORMOCEPHALIC - Eye Exam Eye Exam: EOMI. absent: Scleral icterus - ENT Exam ENT Exam: Mucous Membranes Moist - Respiratory Exam Respiratory Exam: NORMAL BREATHING PATTERN. absent: Accessory Muscle Use, Respiratory Distress - GI/Abdominal Exam GI & Abdominal Exam: Soft. absent: Distended, Guarding, Hernia, Rebound, Rigid, Tenderness Additional comments: dressings C/D/I - Extremities Exam Extremities exam: normal capillary refill, pedal pulses present - Back Exam Back exam: absent: CVA tenderness (L), CVA tenderness (R) - Neurological Exam Neurological exam: Alert, Oriented x3 - Skin Skin Exam: Dry, Warm Discharge Plan - Follow Up Plan Condition: GOOD Disposition: HOME/ ROUTINE Instructions: Colectomy, Partial and Total, (DC), Colectomy Additional Instructions: Call for fever more than 101 or pain uncontrolled by medications. Ok to shower. Can use soap and water, pat incisions dry. Dressings will fall off on their own. No heavy lifting (more than 25lbs) for 3 weeks Soft diet for 1 week until seen by Dr. Ronquillo Follow up with Dr. Ronquillo in his office in 1 week. Call for appointment. Rx in chart for Colace, Pepcid, Ibuprofen Referrals: Angel Ronquillo MD [Staff Provider] -
== END 2018-10-11 11:40 | disposition home or self-care (01) | DRG 331 ==
LOC: C.SDS 07:06 → C.9S 12:46 → C.6T 18:23
PROVIDERS: ADMIT Surgery Surgical Critical Care; ATTEND Surgery Surgical Critical Care
PROC: 0DB84ZZ Excision of Small Intestine, Percutaneous Endoscopic Approach (ICD-10-PCS; 2018-10-05)
PROC: 0DBU4ZZ Excision of Omentum, Percutaneous Endoscopic Approach (ICD-10-PCS; 2018-10-05)
PROC: 0JHT3VZ Insertion of Infusion Pump into Trunk Subcutaneous Tissue and Fascia, Percutaneous Approach (ICD-10-PCS; 2018-10-05)
PROC: 8E0W4CZ Robotic Assisted Procedure of Trunk Region, Percutaneous Endoscopic Approach (ICD-10-PCS; 2018-10-05)
PROC: 0DTF4ZZ Resection of Right Large Intestine, Percutaneous Endoscopic Approach (ICD-10-PCS; principal; 2018-10-05 08:30)
DX: D12.0 Benign neoplasm of cecum (principal); K92.89 Other specified diseases of the digestive system; G89.18 Other acute postprocedural pain